=== PATIENT | male | born 1970 | race Caucasian/White ===

== ENCOUNTER 2016-07-23 08:51 | Emergency (ER) | payer OTHER ==
[2016-07-23 08:39] LABS: BILIRUBIN NEGATIVE (NEGATIVE); BLOOD TRACE-INTACT Ery/uL (NEGATIVE); CLARITY CLEAR (CLEAR); COLOR YELLOW (YELLOW); GLUCOSE (U) NORMAL (NORMAL); KETONE (U) NEGATIVE (NEGATIVE); LEUKOCYTES NEGATIVE Leu/uL (NEGATIVE); NITRITE NEGATIVE (NEGATIVE); PROTEIN NEGATIVE (NEGATIVE); UROBILINOGEN 0.2 mg/dL (0.2-1.0)
[2016-07-23 09:09] LABS: BASOPHIL 0.6 % (0-2); EOSINOPHIL 1.1 % (0-5); HCT 44.9 % (42.0-52.0); MCH 29.2 pg (25.0-31.0); MCHC 33.4 g/dL (32.0-36.0); MCV 87.5 fL (78.0-100.0); MONOCYTE 7.3 % (0-12); MPV 12.7 fL (6.0-9.5); PLT 172 K/uL (150-400); RBC 5.13 M/uL (4.70-6.00); RDW 13.3 % (11.5-14.0); WBC 7.2 K/uL (4.0-10.5)
[2016-07-23 09:13] LABS: INR 0.97 (0.9-1.2); PROTHROMBIN TIME 12.5 SECONDS (11.7-14.0); PTT 28.8 SECONDS (23.2-31.4)
[2016-07-23 09:18] LABS: POTASSIUM 4.1 mmol/L (3.5-5.1)
[2016-07-23 09:18] LABS: BACTERIA TRACE
[2016-07-23 09:20] LABS: AMPHETAMINES NEGATIVE (NEGATIVE); BARBITURATES NEGATIVE (NEGATIVE); BENZODIAZEPINES NEGATIVE (NEGATIVE); COCAINE NEGATIVE (NEGATIVE); MARIJUANA (THC) NEGATIVE (NEGATIVE); METHADONE NEGATIVE (NEGATIVE); TRICYCLIC ANTIDEPRESSANT NEGATIVE (NEGATIVE)
== END 2016-07-23 10:35 | disposition home or self-care (01) ==
LOC: FER 08:51
PROVIDERS: Emergency Medicine
DX: S06.0X9A Concussion with loss of consciousness of unspecified duration, initial encounter (principal); I10 Essential (primary) hypertension; Z87.891 Personal history of nicotine dependence; W18.39XA Other fall on same level, initial encounter; Y93.01 Activity, walking, marching and hiking; Y92.69 Other specified industrial and construction area as the place of occurrence of the external cause; Y99.0 Civilian activity done for income or pay
CPT/HCPCS: 36415; 70450; 72125; 80048; 80305; 81001; 84484; 85025; 85610; 85730; 93005; J1885